=== PATIENT | male | born 1975 | race Caucasian/White ===

== ENCOUNTER 2016-11-26 10:17 | Emergency (ER) | payer OTHER ==
[~2016-11-26] VITALS: Ht 172.7 cm; Wt 109.1 kg
[2016-11-26] MEDS ORDERED: NOVOLOG 100U100 U/ML SQ (10:21)
[2016-11-26] MEDS ORDERED: LEVEMIR100 U/M1 SQ (10:21)
[2016-11-26] MEDS ORDERED: IBU800 M1 PO (11:18)
[2016-11-26] MEDS ORDERED: ULTRAM50 M1 PO (11:18)
[2016-11-26] MEDS ORDERED: SKELAXIN 800MG800 MG PO (11:18)
[2016-11-26 11:38] VITALS: BP 127/84
== END 2016-11-26 11:21 | disposition home or self-care (01) ==
LOC: ED 10:17
DX: S86.112A Strain of other muscle(s) and tendon(s) of posterior muscle group at lower leg level, left leg, initial encounter (principal); X50.9XXA Other and unspecified overexertion or strenuous movements or postures, initial encounter; Y92.008 Other place in unspecified non-institutional (private) residence as the place of occurrence of the external cause; E11.9 Type 2 diabetes mellitus without complications; Z79.4 Long term (current) use of insulin

== ENCOUNTER → 2017-04-17 | Outpatient (CLI) | payer BC ==
[~2017-04-17] MED LIST: IBU800 M1 PO; LEVEMIR100 U/M1 SQ; NOVOLOG 100U100 U/ML SQ; SKELAXIN 800MG800 MG PO; ULTRAM50 M1 PO
== END ==
LOC: RAD 16:58
DX: M25.511 Pain in right shoulder (principal); M25.531 Pain in right wrist; Z88.2 Allergy status to sulfonamides

== ENCOUNTER → 2017-05-10 | Outpatient (CLI) | payer BC | LOC: RAD 13:31 | DX: M50.322 Other cervical disc degeneration at C5-C6 level (principal); Z91.041 Radiographic dye allergy status; Z91.013 Allergy to seafood; Z88.2 Allergy status to sulfonamides; Z91.018 Allergy to other foods ==

== ENCOUNTER 2017-06-14 08:59 | Emergency (ER) | payer BC ==
[~2017-06-14] VITALS: Ht 177.8 cm; Wt 109.1 kg
[2017-06-14] MEDS ORDERED: TRAMADOL 50 MG TAB PO (09:52)
[2017-06-14 10:16] VITALS: BP 152/88
== END 2017-06-14 10:12 | disposition home or self-care (01) ==
LOC: ED 08:59
DX: M75.91 Shoulder lesion, unspecified, right shoulder (principal); E11.9 Type 2 diabetes mellitus without complications; Z79.4 Long term (current) use of insulin; M50.30 Other cervical disc degeneration, unspecified cervical region; M51.36 Other intervertebral disc degeneration, lumbar region

== ENCOUNTER → 2018-03-13 | Outpatient (CLI) | payer BC ==
[~2018-03-13] MED LIST changes: +TRAMADOL 50 MG TAB PO
[2018-03-13 12:42] LABS: EOS # 0.1 (0.04-0.40); EOS % 0.8 % (0.0-4.0); HEMATOCRIT 45.1 % (42.0-52.0); HEMOGLOBIN 15.8 g/dL (13.5-18.0); LYMPH# 2.8 (1.50-4.00); MEAN CELL VOLUME 84 fl (78-100); MEAN CORPUSCULAR HEMOGLOBIN 29 pg (27-31); MEAN CORPUSCULAR HGB CONC 35 g/dL (33-37); MEAN PLATELET VOLUME 9.3 fl (7.4-10.4); MONO # 0.6 (0.20-0.80); PLATELET COUNT 293 K/mm3 (130-400); RED CELL DISTRIBUTION WIDTH 12.2 % (11.5-14.5); WHITE BLOOD COUNT 9.5 K/mm3 (4.8-10.8)
[2018-03-13 13:00] LABS: URINE APPEARANCE CLEAR; URINE BILIRUBIN NEGATIVE (NEGATIVE); URINE BLOOD NEGATIVE (NEGATIVE); URINE COLOR YELLOW; URINE KETONE NEGATIVE (NEGATIVE); URINE LEUKOCYTE ESTERASE NEGATIVE (NEGATIVE); URINE NITRATE NEGATIVE (NEGATIVE); URINE PROTEIN(semi-quant) NEGATIVE (NEGATIVE); URINE UROBILINOGEN NORMAL (NORMAL)
[2018-03-13 13:33] LABS: ALBUMIN 4.2 g/dL (3.5-5.0); CALCIUM 9.7 mg/dL (8.4-10.2); POTASSIUM 4.3 mmol/L (3.6-5.0); TOTAL PROTEIN 7.5 g/dL (6.3-8.2)
[2018-03-13 13:48] LABS: ERYTHROCYTE SEDIMENTATION RATE 12 mm/hr (0-15)
[2018-03-14 03:00] LABS: TESTOSTERONE 162 ng/dL (240-871)
== END ==
LOC: LAB 12:11
PROVIDERS: Internal Medicine
DX: Z00.00 Encounter for general adult medical examination without abnormal findings (principal)

== ENCOUNTER → 2018-04-10 | Outpatient (CLI) | payer BC ==
[2018-04-11 01:11] LABS: FOLLICLE STIMULATING HORMONE 6.8 mIU/mL (1.0-12.0); LUTENIZING HORMONE 3.3 mIU/mL (0.6-12.1); PROLACTIN 6.5 ng/mL (3.5-19.4)
== END ==
LOC: LAB 09:04
PROVIDERS: Internal Medicine
DX: E29.1 Testicular hypofunction (principal)

== ENCOUNTER 2020-12-22 12:48 | Emergency (ER) | payer OTHER ==
[~2020-12-22] VITALS: Ht 167.6 cm; Wt 109.1 kg
[2020-12-22 13:00] VITALS: BP 168/106
[2020-12-22] MEDS ORDERED: INSULIN R (N100 U/ML SQ (13:11)
== END 2020-12-22 17:02 | disposition home or self-care (01) ==
LOC: ED 12:48
DX: M54.9 Dorsalgia, unspecified (principal); W31.89XA Contact with other specified machinery, initial encounter; E11.9 Type 2 diabetes mellitus without complications; Z79.4 Long term (current) use of insulin; Z87.891 Personal history of nicotine dependence; W22.8XXA Striking against or struck by other objects, initial encounter; Y92.59 Other trade areas as the place of occurrence of the external cause; Y99.0 Civilian activity done for income or pay
CPT/HCPCS: 15973; L0172

== ENCOUNTER 2021-03-19 16:44 | Emergency (ER) | payer SELFPAY ==
[~2021-03-19 16:44] MED LIST changes: +INSULIN R (N100 U/ML SQ
[2021-03-19 19:40] VITALS: BP 141/89
== END 2021-03-19 19:40 | disposition home or self-care (01) ==
LOC: ED 16:44
DX: M54.50 Low back pain, unspecified (principal); E11.9 Type 2 diabetes mellitus without complications; Z79.4 Long term (current) use of insulin; Y04.8XXA Assault by other bodily force, initial encounter
CPT/HCPCS: J1885; J2270

== ENCOUNTER 2021-11-18 17:25 | Emergency (ER) | payer OTHER ==
[~2021-11-18] VITALS: Ht 172.7 cm; Wt 109.1 kg
[2021-11-18 18:57] LABS: BASO # 0.03 K/mm3 (0.02-0.10); EOS # 0.13 K/mm3 (0.04-0.40); EOS % 1.4 % (0.0-4.0); HEMATOCRIT 43.5 % (42.0-52.0); HEMOGLOBIN 15.5 g/dL (13.5-18.0); LYMPH# 3.13 K/mm3 (1.50-4.00); MEAN CELL VOLUME 84 fl (78-100); MEAN CORPUSCULAR HEMOGLOBIN 30 pg (27-31); MEAN CORPUSCULAR HGB CONC 36 g/dL (33-37); MEAN PLATELET VOLUME 9.8 fl (7.4-10.4); MONO # 0.59 K/mm3 (0.20-0.80); NEU # 5.68 K/mm3 (1.40-6.50); PLATELET COUNT 249 K/mm3 (130-400); RED BLOOD COUNT 5.17 M/mm3 (4.20-5.60); WHITE BLOOD COUNT 9.6 K/mm3 (4.8-10.8)
[2021-11-18 19:10] LABS: ALBUMIN 4.1 g/dL (3.5-5.0); POTASSIUM 3.7 mmol/L (3.5-5.1)
[2021-11-18 19:11] LABS: CALCIUM 9.5 mg/dL (8.3-10.5)
[2021-11-18 19:12] LABS: TOTAL PROTEIN 7.9 g/dL (6.4-8.3)
[2021-11-18 19:14] LABS: TOTAL BILIRUBIN 0.7 mg/dL (0.2-1.2)
[2021-11-18 20:43] VITALS: BP 127/98
== END 2021-11-18 20:45 | disposition home or self-care (01) ==
LOC: ED 17:25
PROVIDERS: Family Medicine
DX: R07.89 Other chest pain (principal); Z28.310 Unvaccinated for COVID-19
CPT/HCPCS: J1815

== ENCOUNTER 2021-12-21 20:28 | Emergency (ER) | payer OTHER ==
[~2021-12-21] VITALS: Ht 167.6 cm; Wt 109.1 kg
[2021-12-22 00:27] VITALS: BP 135/85
== END 2021-12-22 00:25 | disposition home or self-care (01) ==
LOC: ED 20:28
DX: U07.1 COVID-19 (principal); E11.9 Type 2 diabetes mellitus without complications; R79.1 Abnormal coagulation profile; Z28.310 Unvaccinated for COVID-19; Z87.891 Personal history of nicotine dependence; Z73.0 Burn-out
CPT/HCPCS: J1100; J1200; J7050; Q9967

== ENCOUNTER → 2021-12-21 | Outpatient (CLI) | payer OTHER ==
[2021-12-21 17:27] LABS: BASO # 0.03 K/mm3 (0.02-0.10); EOS # 0.06 K/mm3 (0.04-0.40); EOS % 1.7 % (0.0-4.0); HEMATOCRIT 47.3 % (42.0-52.0); HEMOGLOBIN 16.1 g/dL (13.5-18.0); LYMPH# 1.68 K/mm3 (1.50-4.00); MEAN CELL VOLUME 85 fl (78-100); MEAN CORPUSCULAR HEMOGLOBIN 29 pg (27-31); MEAN CORPUSCULAR HGB CONC 34 g/dL (33-37); MEAN PLATELET VOLUME 9.8 fl (7.4-10.4); NEU # 1.36 K/mm3 (1.40-6.50); PLATELET COUNT 168 K/mm3 (130-400); RED BLOOD COUNT 5.55 M/mm3 (4.20-5.60); RED CELL DISTRIBUTION WIDTH 12.5 % (11.5-14.5); WHITE BLOOD COUNT 3.5 K/mm3 (4.8-10.8)
[2021-12-21 17:36] LABS: ALBUMIN 4.1 g/dL (3.5-5.0); CALCIUM 9.4 mg/dL (8.3-10.5); CARBON DIOXIDE 20 mmol/L (22-29); GLUCOSE 272 mg/dL (75-110); POTASSIUM 3.9 mmol/L (3.5-5.1); SODIUM 137 mmol/L (136-145); TOTAL BILIRUBIN 0.5 mg/dL (0.2-1.2); TOTAL PROTEIN 7.6 g/dL (6.4-8.3)
[2021-12-21 17:37] LABS: AST-SGOT 43 U/L (5-34)
[2021-12-21 17:38] LABS: ALT/SGPT 27 U/L (0-55)
[2021-12-21 17:45] LABS: TROPONIN-I < 0.030 ng/mL (<0.030)
[2021-12-21 18:04] LABS: D-DIMER 1.11 mg/L FEU (0.15-0.50)
== END ==
LOC: LAB 15:33
PROVIDERS: Nurse Practitioner Family
DX: U07.1 COVID-19 (principal)

== ENCOUNTER → 2022-01-31 | Outpatient (CLI) | payer OTHER ==
[2022-01-31 09:14] LABS: BASO # 0.02 K/mm3 (0.02-0.10); EOS # 0.12 K/mm3 (0.04-0.40); EOS % 1.6 % (0.0-4.0); HEMOGLOBIN 16.3 g/dL (13.5-18.0); LYMPH# 2.53 K/mm3 (1.50-4.00); MEAN CELL VOLUME 85 fl (78-100); MEAN CORPUSCULAR HEMOGLOBIN 29 pg (27-31); MEAN CORPUSCULAR HGB CONC 35 g/dL (33-37); MEAN PLATELET VOLUME 8.9 fl (7.4-10.4); NEU # 4.27 K/mm3 (1.40-6.50); PLATELET COUNT 209 K/mm3 (130-400); RED BLOOD COUNT 5.55 M/mm3 (4.20-5.60); RED CELL DISTRIBUTION WIDTH 12.3 % (11.5-14.5); WHITE BLOOD COUNT 7.4 K/mm3 (4.8-10.8)
[2022-01-31 09:24] LABS: POTASSIUM 3.8 mmol/L (3.5-5.1)
[2022-01-31 09:26] LABS: CALCIUM 9.4 mg/dL (8.3-10.5); URINE APPEARANCE CLEAR; URINE BILIRUBIN NEGATIVE (NEGATIVE); URINE BLOOD NEGATIVE (NEGATIVE); URINE COLOR YELLOW; URINE KETONE NEGATIVE (NEGATIVE); URINE LEUKOCYTE ESTERASE NEGATIVE (NEGATIVE); URINE NITRATE NEGATIVE (NEGATIVE); URINE PROTEIN(semi-quant) NEGATIVE (NEGATIVE); URINE UROBILINOGEN NORMAL (NORMAL)
[2022-01-31 09:27] LABS: TOTAL PROTEIN 7.7 g/dL (6.4-8.3)
[2022-01-31 09:29] LABS: TOTAL BILIRUBIN 0.6 mg/dL (0.2-1.2)
[2022-02-01 19:45] LABS: TESTOSTERONE 156 ng/dL (240-871)
[2022-02-05 08:51] LABS: VITAMIN B1 155 nmol/L (70-180)
== END ==
LOC: RAD 08:44 → LAB 08:44
PROVIDERS: Internal Medicine
DX: Z12.5 Encounter for screening for malignant neoplasm of prostate (principal); R41.82 Altered mental status, unspecified; E29.1 Testicular hypofunction; R20.2 Paresthesia of skin; E11.9 Type 2 diabetes mellitus without complications
CPT/HCPCS: J1200; Q9967

== ENCOUNTER 2022-03-29 08:00 | Emergency (ER) | payer OTHER ==
[2022-03-29 08:12] VITALS: BP 153/97
[2022-03-29 09:13] LABS: BASO # 0.01 K/mm3 (0.02-0.10); EOS # 0.07 K/mm3 (0.04-0.40); HEMATOCRIT 48.8 % (42.0-52.0); HEMOGLOBIN 16.9 g/dL (13.5-18.0); LYMPH# 2.01 K/mm3 (1.50-4.00); MEAN CELL VOLUME 86 fl (78-100); MEAN CORPUSCULAR HEMOGLOBIN 30 pg (27-31); MEAN CORPUSCULAR HGB CONC 35 g/dL (33-37); MEAN PLATELET VOLUME 9.2 fl (7.4-10.4); MONO # 0.54 K/mm3 (0.20-0.80); NEU # 4.51 K/mm3 (1.40-6.50); PLATELET COUNT 237 K/mm3 (130-400); RED CELL DISTRIBUTION WIDTH 11.9 % (11.5-14.5); SODIUM 138 mmol/L (136-145); WHITE BLOOD COUNT 7.1 K/mm3 (4.8-10.8)
[2022-03-29 09:14] LABS: CALCIUM 9.1 mg/dL (8.3-10.5)
[2022-03-29 09:15] LABS: GLUCOSE 270 mg/dL (75-110); TOTAL PROTEIN 7.8 g/dL (6.4-8.3)
[2022-03-29 09:16] LABS: CARBON DIOXIDE 23 mmol/L (22-29)
[2022-03-29 09:17] LABS: TOTAL BILIRUBIN 0.9 mg/dL (0.2-1.2)
[2022-03-29 09:19] LABS: URINE APPEARANCE CLEAR; URINE COLOR YELLOW
[2022-03-29 09:20] LABS: URINE BILIRUBIN NEGATIVE (NEGATIVE); URINE BLOOD NEGATIVE (NEGATIVE); URINE KETONE NEGATIVE (NEGATIVE); URINE LEUKOCYTE ESTERASE NEGATIVE (NEGATIVE); URINE NITRATE NEGATIVE (NEGATIVE); URINE PROTEIN(semi-quant) NEGATIVE (NEGATIVE); URINE UROBILINOGEN NORMAL (NORMAL); URINE WBC 0-1 /hpf (0-3)
[2022-03-29 09:21] LABS: AST-SGOT 14 U/L (5-34)
[2022-03-29 09:22] LABS: ALCOHOL IN-HOUSE < 10 mg/dL (<10); ALT/SGPT 11 U/L (0-55)
[2022-03-29 09:23] LABS: ACETAMINOPHEN < 1 ug/mL
== END 2022-03-29 13:38 | disposition home or self-care (01) ==
LOC: ED 08:00
PROVIDERS: Physician Assistant
DX: F32.A Depression, unspecified (principal); Z28.310 Unvaccinated for COVID-19

== ENCOUNTER 2022-04-07 14:37 | Emergency (ER) | payer OTHER ==
[~2022-04-07] VITALS: Ht 175.3 cm; Wt 100.0 kg
[2022-04-07] MEDS ORDERED: DESVENLAFAXINE50 M3 PO (14:55)
[2022-04-07] MEDS ORDERED: ABILIFY5 MG PO (14:55)
[2022-04-07 16:48] VITALS: BP 131/86
== END 2022-04-07 16:30 | disposition home or self-care (01) ==
LOC: ED 14:37
DX: M76.52 Patellar tendinitis, left knee (principal); Z87.891 Personal history of nicotine dependence; Z28.310 Unvaccinated for COVID-19

== ENCOUNTER 2022-06-17 10:40 | Emergency (ER) | payer OTHER ==
[~2022-06-17 10:40] MED LIST changes: +ABILIFY5 MG PO; +DESVENLAFAXINE50 M3 PO
[2022-06-17 11:06] LABS: BASO # 0.02 K/mm3 (0.02-0.10); EOS # 0.17 K/mm3 (0.04-0.40); EOS % 1.7 % (0.0-4.0); HEMATOCRIT 52.3 % (42.0-52.0); HEMOGLOBIN 18.5 g/dL (13.5-18.0); LYMPH# 3.29 K/mm3 (1.50-4.00); MEAN CELL VOLUME 84 fl (78-100); MEAN CORPUSCULAR HEMOGLOBIN 30 pg (27-31); MEAN CORPUSCULAR HGB CONC 35 g/dL (33-37); MEAN PLATELET VOLUME 9.8 fl (7.4-10.4); MONO # 0.54 K/mm3 (0.20-0.80); NEU # 6.12 K/mm3 (1.40-6.50); PLATELET COUNT 223 K/mm3 (130-400); RED BLOOD COUNT 6.26 M/mm3 (4.20-5.60); RED CELL DISTRIBUTION WIDTH 11.5 % (11.5-14.5); WHITE BLOOD COUNT 10.2 K/mm3 (4.8-10.8)
[2022-06-17 11:11] LABS: ALBUMIN 4.1 g/dL (3.5-5.0)
[2022-06-17 11:12] LABS: POTASSIUM 4.3 mmol/L (3.5-5.1)
[2022-06-17 11:13] LABS: CALCIUM 9.7 mg/dL (8.3-10.5)
[2022-06-17 11:14] LABS: TOTAL PROTEIN 8.1 g/dL (6.4-8.3)
[2022-06-17 11:16] LABS: TOTAL BILIRUBIN 0.6 mg/dL (0.2-1.2)
[2022-06-17 14:32] LABS: URINE APPEARANCE CLEAR; URINE BILIRUBIN NEGATIVE (NEGATIVE); URINE BLOOD NEGATIVE (NEGATIVE); URINE COLOR YELLOW; URINE KETONE NEGATIVE (NEGATIVE); URINE LEUKOCYTE ESTERASE NEGATIVE (NEGATIVE); URINE MUCUS PRESENT (NOT PRESENT); URINE NITRATE NEGATIVE (NEGATIVE); URINE PROTEIN(semi-quant) 1+ (NEGATIVE); URINE UROBILINOGEN NORMAL (NORMAL); URINE WBC 0-1 /hpf (0-3)
[2022-06-17 14:43] VITALS: BP 139/79
== END 2022-06-17 14:46 | disposition home or self-care (01) ==
LOC: ED 10:40
PROVIDERS: Nurse Practitioner
DX: R10.12 Left upper quadrant pain (principal); Z87.891 Personal history of nicotine dependence; Z20.822 Contact with and (suspected) exposure to COVID-19; Z28.310 Unvaccinated for COVID-19
CPT/HCPCS: J7040

== ENCOUNTER → 2022-06-25 | Outpatient (CLI) | payer OTHER ==
[2022-06-25 14:29] LABS: BASO # 0.02 K/mm3 (0.02-0.10); EOS # 0.08 K/mm3 (0.04-0.40); EOS % 0.8 % (0.0-4.0); HEMATOCRIT 52.7 % (42.0-52.0); HEMOGLOBIN 18.5 g/dL (13.5-18.0); LYMPH# 3.01 K/mm3 (1.50-4.00); MEAN CELL VOLUME 84 fl (78-100); MEAN CORPUSCULAR HEMOGLOBIN 29 pg (27-31); MEAN CORPUSCULAR HGB CONC 35 g/dL (33-37); MEAN PLATELET VOLUME 9.2 fl (7.4-10.4); MONO # 0.51 K/mm3 (0.20-0.80); NEU # 6.14 K/mm3 (1.40-6.50); PLATELET COUNT 245 K/mm3 (130-400); RED BLOOD COUNT 6.31 M/mm3 (4.20-5.60); RED CELL DISTRIBUTION WIDTH 11.5 % (11.5-14.5); WHITE BLOOD COUNT 9.8 K/mm3 (4.8-10.8)
[2022-06-25 14:37] LABS: ALBUMIN 4.2 g/dL (3.5-5.0); POTASSIUM 4.1 mmol/L (3.5-5.1)
[2022-06-25 14:38] LABS: CALCIUM 9.8 mg/dL (8.3-10.5)
[2022-06-25 14:42] LABS: TOTAL BILIRUBIN 0.8 mg/dL (0.2-1.2)
[2022-06-25 15:36] LABS: ERYTHROCYTE SEDIMENTATION RATE 3 mm/hr (0-15)
== END ==
LOC: LAB 14:15
PROVIDERS: Nurse Practitioner
DX: G43.909 Migraine, unspecified, not intractable, without status migrainosus (principal)

== ENCOUNTER → 2023-02-26 | Outpatient (CLI) | payer OTHER ==
[~2023-02-26] MED LIST changes: +AMOXICILLIN AND1 TA2 PO; +OMEPRAZOLE40 MG PO
== END ==
LOC: RAD 15:09
DX: J34.89 Other specified disorders of nose and nasal sinuses (principal); K08.89 Other specified disorders of teeth and supporting structures; J34.1 Cyst and mucocele of nose and nasal sinus

== ENCOUNTER → 2023-11-06 | Outpatient (CLI) | payer SELFPAY ==
[2023-11-06 07:35] LABS: BASO # 0.02 K/mm3 (0.02-0.10); EOS # 0.19 K/mm3 (0.04-0.40); EOS % 1.8 % (0.0-4.0); HEMATOCRIT 40.5 % (42.0-52.0); HEMOGLOBIN 14.5 g/dL (13.5-18.0); LYMPH# 3.04 K/mm3 (1.50-4.00); MEAN CELL VOLUME 84 fl (78-100); MEAN CORPUSCULAR HEMOGLOBIN 30 pg (27-31); MEAN CORPUSCULAR HGB CONC 36 g/dL (33-37); MONO # 0.62 K/mm3 (0.20-0.80); NEU # 6.54 K/mm3 (1.40-6.50); PLATELET COUNT 264 K/mm3 (130-400); RED BLOOD COUNT 4.83 M/mm3 (4.20-5.60); RED CELL DISTRIBUTION WIDTH 11.9 % (11.5-14.5); WHITE BLOOD COUNT 10.4 K/mm3 (4.8-10.8)
[2023-11-06 07:37] LABS: ALBUMIN 3.8 g/dL (3.5-5.0)
[2023-11-06 07:39] LABS: CALCIUM 8.9 mg/dL (8.3-10.5)
[2023-11-06 07:40] LABS: TOTAL PROTEIN 6.8 g/dL (6.4-8.3)
[2023-11-06 07:42] LABS: TOTAL BILIRUBIN 0.8 mg/dL (0.2-1.2)
[2023-11-06 07:47] LABS: MAGNESIUM 1.91 mg/dL (1.60-2.60)
== END ==
LOC: LAB 07:11
PROVIDERS: Internal Medicine
DX: K92.0 Hematemesis (principal)

== ENCOUNTER 2023-11-17 08:34 | Emergency (ER) | payer OTHER ==
[~2023-11-17] VITALS: Ht 170.2 cm; Wt 94.2 kg
[2023-11-17] MEDS ORDERED: ZOFRAN ODT4 MG PO (08:47)
[2023-11-17] MEDS ORDERED: GABAPENTIN100 MG PO (08:49)
[2023-11-17 09:34] LABS: BASO # 0.02 K/mm3 (0.02-0.10); EOS # 0.12 K/mm3 (0.04-0.40); EOS % 1.9 % (0.0-4.0); HEMATOCRIT 40.2 % (42.0-52.0); LYMPH# 1.83 K/mm3 (1.50-4.00); MEAN CELL VOLUME 85 fl (78-100); MEAN CORPUSCULAR HEMOGLOBIN 30 pg (27-31); MEAN CORPUSCULAR HGB CONC 35 g/dL (33-37); MONO # 0.45 K/mm3 (0.20-0.80); NEU # 3.95 K/mm3 (1.40-6.50); PLATELET COUNT 223 K/mm3 (130-400); RED BLOOD COUNT 4.75 M/mm3 (4.20-5.60); RED CELL DISTRIBUTION WIDTH 11.9 % (11.5-14.5); WHITE BLOOD COUNT 6.4 K/mm3 (4.8-10.8)
[2023-11-17 09:38] LABS: ALBUMIN 3.6 g/dL (3.5-5.0)
[2023-11-17 09:39] LABS: CALCIUM 8.4 mg/dL (8.3-10.5)
[2023-11-17 09:41] LABS: TOTAL PROTEIN 6.3 g/dL (6.4-8.3)
[2023-11-17 09:42] LABS: TOTAL BILIRUBIN 0.5 mg/dL (0.2-1.2)
[2023-11-17 10:12] VITALS: BP 163/94
== END 2023-11-17 10:20 | disposition home or self-care (01) ==
LOC: ED 08:34
PROVIDERS: Physician Assistant
DX: K92.0 Hematemesis (principal)

== ENCOUNTER 2023-12-02 17:02 | Emergency (ER) | payer OTHER ==
[~2023-12-02] VITALS: Ht 170.2 cm; Wt 92.3 kg
[~2023-12-02 17:02] MED LIST changes: +GABAPENTIN100 MG PO; +ZOFRAN ODT4 MG PO
[2023-12-02] MEDS ORDERED: CYMBALTA20 MG PO (17:30)
[2023-12-02] MEDS ORDERED: MINIPRESS 1M1 MG/CAP (17:31)
[2023-12-02] MEDS ORDERED: TOPAMAX25 M2 PO (17:32)
[2023-12-02 17:40] LABS: BASO # 0.02 K/mm3 (0.02-0.10); EOS # 0.18 K/mm3 (0.04-0.40); EOS % 1.9 % (0.0-4.0); HEMATOCRIT 44.6 % (42.0-52.0); HEMOGLOBIN 15.4 g/dL (13.5-18.0); MEAN CELL VOLUME 85 fl (78-100); MEAN CORPUSCULAR HEMOGLOBIN 29 pg (27-31); MEAN CORPUSCULAR HGB CONC 35 g/dL (33-37); MEAN PLATELET VOLUME 9.1 fl (7.4-10.4); NEU # 5.31 K/mm3 (1.40-6.50); PLATELET COUNT 237 K/mm3 (130-400); RED BLOOD COUNT 5.25 M/mm3 (4.20-5.60); WHITE BLOOD COUNT 9.3 K/mm3 (4.8-10.8)
[2023-12-02 17:48] LABS: ALBUMIN 4.1 g/dL (3.5-5.0)
[2023-12-02 17:50] LABS: CALCIUM 9.6 mg/dL (8.3-10.5)
[2023-12-02 17:51] LABS: TOTAL PROTEIN 7.3 g/dL (6.4-8.3)
[2023-12-02 18:35] VITALS: BP 124/88
== END 2023-12-02 18:37 | disposition home or self-care (01) ==
LOC: ED 17:02
PROVIDERS: Physician Assistant
DX: R10.10 Upper abdominal pain, unspecified (principal); R10.13 Epigastric pain

== ENCOUNTER → 2023-12-08 | Day surgery (SDC) | payer OTHER ==
[~2023-12-08] MED LIST changes: +CYMBALTA20 MG PO; +Lidocaine PF 2% (20 MG/ML) 5 ML VIAL ONE; +MINIPRESS 1M1 MG/CAP; +TOPAMAX25 M2 PO
== END ==
LOC: MSO 07:45
DX: K29.30 Chronic superficial gastritis without bleeding (principal); K25.9 Gastric ulcer, unspecified as acute or chronic, without hemorrhage or perforation; K31.89 Other diseases of stomach and duodenum; K31.84 Gastroparesis
CPT/HCPCS: 00731; J2704; J7120

== ENCOUNTER → 2024-06-29 | Outpatient (CLI) | payer OTHER ==
[~2024-06-29] MED LIST changes: -Lidocaine PF 2% (20 MG/ML) 5 ML VIAL ONE
[2024-06-29 09:59] LABS: BASO # 0.01 K/mm3 (0.02-0.10); EOS # 0.08 K/mm3 (0.04-0.40); HEMATOCRIT 48.3 % (42.0-52.0); HEMOGLOBIN 16.5 g/dL (13.5-18.0); LYMPH# 1.98 K/mm3 (1.50-4.00); MEAN CELL VOLUME 86 fl (78-100); MEAN CORPUSCULAR HEMOGLOBIN 29 pg (27-31); MEAN CORPUSCULAR HGB CONC 34 g/dL (33-37); MONO # 0.38 K/mm3 (0.20-0.80); NEU # 5.66 K/mm3 (1.40-6.50); PLATELET COUNT 259 K/mm3 (130-400); RED BLOOD COUNT 5.65 M/mm3 (4.20-5.60); WHITE BLOOD COUNT 8.1 K/mm3 (4.8-10.8)
[2024-06-29 10:07] LABS: ALBUMIN 4.1 g/dL (3.5-5.0)
[2024-06-29 10:08] LABS: CALCIUM 10.1 mg/dL (8.3-10.5)
[2024-06-29 10:10] LABS: TOTAL PROTEIN 8.1 g/dL (6.4-8.3)
[2024-06-29 10:11] LABS: TOTAL BILIRUBIN 0.8 mg/dL (0.2-1.2)
[2024-06-29 10:16] LABS: MAGNESIUM 1.73 mg/dL (1.60-2.60)
[2024-06-29 10:24] LABS: URINE APPEARANCE CLEAR (CLEAR); URINE BILIRUBIN NEGATIVE (NEGATIVE); URINE BLOOD NEGATIVE (NEGATIVE); URINE COLOR YELLOW (YELLOW); URINE GLUCOSE 3+ (NEGATIVE); URINE KETONE TRACE (NEGATIVE); URINE LEUKOCYTE ESTERASE NEGATIVE (NEGATIVE); URINE NITRATE NEGATIVE (NEGATIVE); URINE PROTEIN(semi-quant) NEGATIVE (NEGATIVE)
[2024-06-29 10:25] LABS: URINE WBC 0-1 /hpf (0-3)
== END ==
LOC: LAB 09:10
PROVIDERS: Internal Medicine
DX: M19.011 Primary osteoarthritis, right shoulder (principal); E29.1 Testicular hypofunction; E11.9 Type 2 diabetes mellitus without complications; E78.2 Mixed hyperlipidemia; K92.0 Hematemesis